=== PATIENT | male | born 1990 | race Caucasian/White ===

== ENCOUNTER 2022-06-23 11:27 | Outpatient (CLI) | payer OTHER ==
--- NOTE | 2022-06-25 11:33 | MRI Report ---
PROCEDURE: CERVICAL SPINE WO INDICATIONS: CERVICAL RADICULOPATHY TECHNIQUE: Noncontrast sagittal T1 spin echo and T2 fast spin echo, sagittal STIR, foraminal oblique sagittal T2 fast spin echo, and axial gradient echo or T2 fast spin echo through the cervical spine. COMPARISON: None. FINDINGS: Image quality: Excellent. Alignment and Curvature: There is normal bony alignment. Bone Marrow: Marrow demonstrates normal overall signal. Spinal Cord: Visualized spinal cord has normal size and signal. No cerebellar tonsillar herniation. Paraspinous Soft Tissues: No paravertebral masses. Prevertebral soft tissues are normal in thicknes s. C2-C3: No canal stenosis or foraminal stenosis. C3-C4: Mild disc bulge. Short pedicles. AP diameter of the canal is 9.7 mm. No foraminal stenosis. C4-C5: Short pedicles. Minimal disc bulge. AP diameter of the canal is 9.1 mm. No foraminal stenosis . C5-C6: Short pedicles. Mild central posterior disc protrusion indenting on the cord. AP diameter of the canal is 7.5 mm. No foraminal stenosis. C6-C7: Short pedicles. Diffuse posterior disc plus osteophyte, flattening the cord. AP diameter of t he canal is 7.4 mm. Bilateral uncovertebral joint hypertrophy. Left foraminal disc plus osteophyte ca uses moderate to severe left foraminal narrowing and left foraminal C7 nerve root impingement. C7-T1: No canal stenosis or foraminal stenosis. IMPRESSION: 1. Underlying short pedicles contributes to multilevel canal stenosis from C3/4 through C6/7 2. There is severe canal stenosis at C5-C6 and C6-C7. There is also moderately severe left foraminal narrowing at C6-C7, resulting in left C7 foraminal nerve root impingement. Reviewed by: Krishan Savage MD on 06/25/2022 11:32 AM PST Approved by: Krishan Savage MD on 06/25/2022 11:32 AM PST Station ID: [id number]
== END 2022-06-23 11:28 | disposition home or self-care (01) ==
LOC: DI 11:27
PROVIDERS: ATTEND Student in an Organized Health Care Education/Training Program
DX: M50.122 Cervical disc disorder at C5-C6 level with radiculopathy (principal); M47.22 Other spondylosis with radiculopathy, cervical region; M48.02 Spinal stenosis, cervical region